=== PATIENT | male | born 1995 | race Asian ===

== ENCOUNTER 2019-01-12 18:06 | Emergency (ER) | payer OTHER, SELFPAY | END 2019-01-12 19:07 | disposition home or self-care (01) | LOC: NAV ERS 18:06 | DX: S60.416A Abrasion of right little finger, initial encounter (principal); F17.210 Nicotine dependence, cigarettes, uncomplicated; F17.220 Nicotine dependence, chewing tobacco, uncomplicated; V89.2XXA Person injured in unspecified motor-vehicle accident, traffic, initial encounter | CPT/HCPCS: 99281 ==